=== PATIENT | female | born 1960 | race Caucasian/White ===

== ENCOUNTER 2017-11-06 16:08 | Emergency (ER) | payer MEDICAID ==
[~2017-11-06] VITALS: Ht 165.1 cm; Wt 225.4 kg
[2017-11-06 16:35] VITALS: BP 108/53
== END 2017-11-06 18:16 | disposition home or self-care (01) ==
LOC: ER 16:09
DX: T81.89XA Other complications of procedures, not elsewhere classified, initial encounter (principal); I48.91 Unspecified atrial fibrillation; I12.9 Hypertensive chronic kidney disease with stage 1 through stage 4 chronic kidney disease, or unspecified chronic kidney disease; N18.9 Chronic kidney disease, unspecified; Z90.710 Acquired absence of both cervix and uterus; Z48.01 Encounter for change or removal of surgical wound dressing